=== PATIENT | female | born 1960 | race Caucasian/White ===

== ENCOUNTER 2023-07-04 08:18 | Outpatient (AMB) | payer OTHER, SELFPAY ==
--- NOTE | 2023-07-04 08:31 | A.OFFVIS_ITS ---
Intake VS Expanded 07/04/23 08:33 07/04/23 08:53 Height 5 ft 4 in 5 ft 4 in Weight 238 lb 1.588 oz 238 lb BMI 40.9 40.8 Intake Visit Reasons: Obesity HPI Nutrition Presentation Details Pt presents for MNT for morbid obesity. The Pt was referred by PCP, Pamela Herrera PA-C from [facility]. Pt has hx of elevated cholesterol (04/2023 tot chol at 215, LDL at 104 , HDL at 65, Tg at 234) Typical meal intake: B: skips or may have Metamucil, diet coke (toast or Occitan muffin L: fast food: mc chicken burger or fries snack on fruits or bread 5: 30 pm steak or chicken in a wrap , m ilk 1% Food frequency fish : not including - prefers yogurt milk: 1-2 serving/day fruits 1-2 /day non starchy vegetables : 2 times/wk Starches > 20 serving/d ETOH: 5 servings smoking: denies physical activity: sedentary YOG-Hnhxrcy-Hx.Jeor Equation Height 5 ft 4 in Weight 238 lb Resting Metabolic Rate 1628.43 Calculated Activity Level Sedentary Calories Needed to Maintain Weight 1954.12 Diagnosis Nutrition problem #1 excessive energy intake As related to (etiology) #1 diagnosis As evidenced by (sign/symptom) #1 high BMI (40.9 on 06/2023) Monitoring/Goals Nutrition problem monitoring total energy intake and weight Nutrition goal/outcome wt loss 5lbs in 2 months Outcome progress verbalized understanding Learning/Education Readiness to learn good Stages of change pre-contemplation Educational materials provided Yes (meal planning) Most Recent Diabetes Results: No Data to Display [facility] Medical History (Updated 07/04/23 @ 09:[address], LDN) Moderate depressive disorder Diverticulosis Elevated glucose Elevated cholesterol Assessment & Plan Assessment & Plan (1) Morbid obesity with BMI of 40.0-44.9, adult: Code(s): E66.01 - Morbid (severe) obesity due to excess calories; Z68.41 - Body mass index [BMI] 40.0-44.9, adult Plan: wt: 108 kg Est kcal needs as per MSJ: 1900 (40% carb, 30% protein/fat) Est fluid needs as per 25-30 ml/d: 2700 Est prot per day as per 1 g/kg bw: 108 Recommend fiber intake : 8-10 g per day and gradually increase to 25-28 g per day for women and 35-38 g for men or as tolerated Recommend sodium intake per day : less than 2000 mg Educated patient on: ( R = reviewed V = verbalizes understanding N/R = needs review N/A = not applicable * Food sources of carbohydrate, adequate serving sizes and its role in various health conditions: R * Differences between complex carbohydrates a simple carbohydrates, role of fiber in diet: R * Differences between types of fats and role in diet (mono on saturated fat fatty acids, saturated fatty acids, trans fats): R basic low fat * Food sources of sodium in salt and healthy modifications for heart health in kidney health: NR * Healthy plate method concept: R * Physical activity: Benefits a precaution: NR Patient Instructions: Work on having 2 balanced meals per day, reducing calories from fried foods Have a meal replacement as your breakfast in place of skipping breakfast see 1900 julian meal plan as reference keep a food record and bring to next f/u for review Coding Level of Care Code Nutr Indiv Intake (52958) Diagnoses Morbid obesity with BMI of 40.0-44.9, adult E66.01; Z68.41 Time Spent (min) 30
[2023-07-04 08:33] VITALS: BMI 40.9
[2023-07-04 08:53] VITALS: BMI 40.8
== END 2023-07-04 09:17 | disposition home or self-care (01) ==
PROVIDERS: PCP Physician Assistant Medical; Visit Provider Dietitian, Registered
DX: E66.01 Morbid (severe) obesity due to excess calories (principal); Z68.41 Body mass index [BMI] 40.0-44.9, adult

== ENCOUNTER → 2023-07-04 08:18 | Outpatient (BNVA) | payer OTHER, SELFPAY | PROVIDERS: PCP Physician Assistant Medical; Visit Provider Dietitian, Registered | DX: E66.01 Morbid (severe) obesity due to excess calories (principal); Z68.41 Body mass index [BMI] 40.0-44.9, adult; Z71.3 Dietary counseling and surveillance | CPT/HCPCS: 97802 ==

== ENCOUNTER 2024-10-29 12:52 | Outpatient (AMB) | payer OTHER, SELFPAY ==
[2024-10-29 12:55] VITALS: BMI 39.4
--- NOTE | 2024-10-29 12:55 | A.OFFVIS_ITS ---
VS Expanded 10/29/24 12:55 Height 5 ft 4 in Weight 229 lb 11.547 oz BMI 39.4 Intake Visit Reasons: Pre DM, Obesity/Confirmed Nutrition Presentation Details: Pt presents for MNT f/u for obesity Pt reports having challenges with meal routine often eating on the go and sometimes having late meals Pt reports currently on 2nd dose of Wegovy, feeling well. Physical activity: none - has treadmill at home meal replacements- on and off BS Monitoring Most Recent Diabetes Results: No Data to Display [facility] Medical History (Updated 07/04/23 @ 09:[address], LDN) Moderate depressive disorder Diverticulosis Elevated glucose Elevated cholesterol Assessment & Plan Assessment & Plan (1) Morbid obesity with BMI of 40.0-44.9, adult: Code(s): E66.01 - Morbid (severe) obesity due to excess calories; Z68.41 - Body mass index [BMI] 40.0-44.9, adult Category: Medical Plan: wt: 108 kg (07/16), 104kg (11/16) Est kcal needs as per MSJ: 1900 (40% carb, 30% protein/fat) Est fluid needs as per 25-30 ml/d: 2700 Est prot per day as per 1 g/kg bw: 108 Recommend fiber intake : 8-10 g per day and gradually increase to 25-28 g per day for women and 35-38 g for men or as tolerated Recommend sodium intake per day : less than 2000 mg Educated patient on: ( R = reviewed V = verbalizes understanding N/R = needs review N/A = not applicable * Food sources of carbohydrate, adequate serving sizes and its role in various health conditions: R * Differences between complex carbohydrates a simple carbohydrates, role of fiber in diet: R * Differences between types of fats and role in diet (mono on saturated fat fatty acids, saturated fatty acids, trans fats): R basic low fat * Food sources of sodium in salt and healthy modifications for heart health in kidney health: NR * Healthy plate method concept: R * Physical activity: Benefits a precaution: R Patient Instructions: Incorporate physical activity , walk 30 minutes 3 times a week , unless otherwise specified by your physician Choose foods high in fiber (whole grain breads, vegetables, legumes) Have homemade meals lower in fat 3 times a week - see list of options as discussed Coding Level of Care Code Nutr Indiv Subseq (12157) Diagnoses Morbid obesity with BMI of 40.0-44.9, adult E66.01; Z68.41 Time Spent (min) 30
== END 2024-10-29 13:37 | disposition home or self-care (01) ==
PROVIDERS: PCP Physician Assistant Medical; Visit Provider Dietitian, Registered
DX: E66.01 Morbid (severe) obesity due to excess calories (principal); Z68.41 Body mass index [BMI] 40.0-44.9, adult

== ENCOUNTER → 2024-10-29 12:52 | Outpatient (BNVA) | payer OTHER, SELFPAY | PROVIDERS: PCP Physician Assistant Medical; Visit Provider Dietitian, Registered | DX: E66.01 Morbid (severe) obesity due to excess calories (principal); Z68.39 Body mass index [BMI] 39.0-39.9, adult | CPT/HCPCS: 97803 ==